=== PATIENT | male | born 1990 | race African-American/Black ===

== ENCOUNTER 2021-07-10 20:52 | Emergency (ER) | payer SELFPAY ==
[2021-07-10] VITALS (18 sets, daily range): BP systolic 125–149; BP diastolic 89–96; PULSE 80–109; RESP 12–25; TEMP 36.4; O2SAT 93–100
[2021-07-10] MEDS: predniSONE 20 MG TABLET 60 MG PO (21:23)
--- NOTE | 2021-07-10 21:25 | ED.ASTHMA ---
HPI - Asthma General Chief Complaint: Asthma Stated Complaint: asthma attack Time Seen by Provider: 07/10/21 21:04 Source: patient History of Present Illness HPI Narrative: Patient presents with concern for an asthma attack. Ports a history of asthma over the past few days has had increased shortness of breath he is attempted his inhalers and nebulized therapies without relief of his symptoms so he came to the ER for further evaluation. Came in last time he came to the ER for an asthma attack. Denies prior admissions for his asthma. Denies any fevers or chills reports mild cough denies any congestion denies any nausea vomiting chest pain abdominal pain. Related Data Home Medications Medication Instructions Recorded Confirmed montelukast 10 mg tablet 10 mg PO DAILY 01/16/19 Allergies Allergy/AdvReac Type Severity Reaction Status Date / Time Penicillins Allergy Unknown Unknown Verified 01/16/19 09:12 Review of Systems Review of Systems: CONSTITUTIONAL: Denies fever, chills, or sweats. EYES: Denies visual changes, redness, or discharge. ENT: Denies rhinorrhea, congestion, sore throat, or otalgia. CARDIOVASCULAR: Denies chest pain, palpitations, or edema. RESPIRATORY: Shortness of breath GASTROINTESTINAL: Denies abdominal pain, nausea, vomiting, or diarrhea. GENITOURINARY: Denies dysuria or hematuria. SKIN: Denies rash or itching. MUSCULOSKELETAL: Denies back pain, joint pain, or myalgia. NEUROLOGIC: Denies headache, numbness, dizziness, or weakness. PSYCHIATRIC: Denies anxiety or depression. All systems reviewed & are unremarkable except as noted in HPI and below PMFSH Past Medical History Medical History Asthma Social History Social History Smoking status: Never smoker Exam Narrative: GENERAL: Well-appearing, well-nourished, and in no acute distress. HEAD: Normocephalic, atraumatic. EYES: PERRLA and EOMI. ENT: Nares clear, no rhinorrhea or epistaxis. Mucous membranes moist. NECK: Supple. No masses. No JVD CHEST: Clear to auscultation. No respiratory distress. Diffuse wheezing in all lung ruiz most noted with expiratory phase HEART: Regular rate and rhythm. No murmur heard. Normal peripheral pulses. EXTREMITIES: Normal range of motion. No edema. SKIN: Warm, dry, no rash. NEURO: No focal deficits. Alert and oriented x3. PSYCH: Normal mood and affect. Course Reevaluation(s) Reevaluation #1: Patient reports feeling much improved after nebulized therapies. Repeat lung exam is with minimal end expiratory wheezing which is much improved from his initial exam. Date: 07/10/21 Time: 23:08 Vital Signs Vital signs: Vital Signs Temperature 36.4 C 07/10/21 20:53 Pulse Rate 97 07/10/21 20:53 Respiratory Rate 20 07/10/21 20:53 Blood Pressure 149/94 H 07/10/21 20:53 Pulse Oximetry 96 07/10/21 20:53 Temperature 36.4 C 07/10/21 20:53 Pulse Rate 100 07/10/21 23:21 Respiratory Rate 18 07/10/21 23:21 Blood Pressure 125/96 H 07/10/21 23:21 Pulse Oximetry 99 07/10/21 23:21 MDM - Asthma MDM Narrative Medical decision making narrative: H&P as above, vss, pt looks clinically well, exam initially with diffuse wheezing, labs/img considered, symptomatic relief available as needed, patient treated with steroids and nebulized therapy on reevaluation pt continues to looks clinically well, reported feeling much improved repeat exam was much improved. Suspect asthma exacerbation, dns pneumonia, severe sepsis, hypoxia. plan to tx/monitor as op w/ pcm f/u findings/plan discussed with pt, pt agree/comfortable with plan, return precautions given Discharge Plan Discharge Clinical Impression: Asthma with acute exacerbation Qualifiers: Asthma severity: unspecified severity Asthma persistence: unspecified Qualified Code(s): J45.901 - Unspecified asthma with (acute) exacerbation Pat
[2021-07-10] MEDS: IPRATROPIUM BR 0.02% INH SOLN 0.5 MG/2.5 ML VIAL 1.5 MG INHALATION (21:31)
[2021-07-10] MEDS: ALBUTEROL SULFATE NEB 2.5 MG/3 ML INH 15 MG INHALATION (21:31)
== END 2021-07-10 23:23 | disposition home or self-care (01) ==
PROVIDERS: Emergency Provider Emergency Medicine; PCP Family Medicine
DX: J45.901 Unspecified asthma with (acute) exacerbation (principal)
CPT/HCPCS: 94640; 99283; J7512